=== PATIENT | male | born 1940 | race Caucasian/White ===

== ENCOUNTER → 2017-05-28 | Outpatient (CLI) | payer MEDICARE, OTHER ==
[~2017-05-28] MED LIST: AMOXICILLIN; ASP81CT PO; DOXY100C2 PO; GABA-531 PO; MULT-974 PO; NIAC1CAP PO; OSTEO BI-FLEX1 EACH PO; SMV20T PO; [UNRECOGNIZED DRUG - OTHER] PO
--- NOTE | 2017-05-28 16:41 | Diagnostic Imaging Report ---
PROCEDURE: MRI lumbar spine. TECHNIQUE: Multiplanar, multisequence MRI of the lumbar spine was performed without contrast. INDICATION: Back pain. History of back surgery. FINDINGS: There is posterior and anterior fusion hardware noted at L4, L5 and S1 levels. There is minimal posterior translation of L2 over L3 and L3 over L4, otherwise the alignment of the posterior spinal line is satisfactory. The vertebral body heights appear preserved. There is severe disc height loss at L2/L3 level. There are mild disc herniations at L1/2, L2/3 and L3/L4 levels. There is marrow edema and Modic type changes around endplates in the mid lumbar spine levels. No suspicious focal marrow lesion seen. The cauda equina and conus medullaris appear grossly unremarkable. T12/L1: No disc herniation, no spinal canal or foraminal stenosis. L1/2: There is a diffuse disc bulge and mild to moderate facet hypertrophy. No central canal stenosis. There is mild narrowing of the left lateral recess and no significant narrowing on the right lateral recess. There is mild to moderate bilateral foraminal stenosis. L2/3: There is a diffuse disc bulge and moderate facet hypertrophy bilaterally. No central canal stenosis. There is bilateral minimal narrowing of the lateral recess. There is mild foraminal stenosis bilaterally, more prominent on the left side. L3/L4: There is a diffuse disc bulge and bilateral moderate facet hypertrophy. No central canal stenosis. There is moderate stenosis of the left lateral recess abutting the descending left L4 nerve root. No stenosis on the right lateral recess. The foramina demonstrate bilateral moderate to severe stenosis worse on the left side encroaching upon the exiting left L3 spinal nerve. L4/5 fusion level demonstrates no remnant disc herniation. No spinal canal or foraminal stenosis. The foramina appear patent. L5/S1: There is fusion changes with no remnant disc herniation or osteophyte evident. No central canal, lateral recess or foraminal stenosis. IMPRESSION: 1. Postsurgical changes with anterior and posterior fusion of L4-S1 levels. 2. Moderate to severe foraminal stenosis at L3/4 level, worse on the left side. Other findings described above. Dictated by: Dictated on workstation # [id number]
== END ==
LOC: RAD 15:10
DX: M51.26 Other intervertebral disc displacement, lumbar region (principal); M48.061 Spinal stenosis, lumbar region without neurogenic claudication; Z98.1 Arthrodesis status
CPT/HCPCS: 72148

== ENCOUNTER 2017-07-28 07:50 | Day surgery (SDC) | payer MEDICARE, OTHER ==
[~2017-07-28] VITALS: Ht 188 cm; Wt 83.9 kg
[2017-07-28] VITALS (9 sets, daily range): BP systolic 118–142; BP diastolic 68–82
[~2017-07-28 07:50] MED LIST changes: -ASPI-983 PO; -ATOR10TA66 PO; -CHOL20003 PO; -GABA-486 PO; -METO-351 PO; -ROSU10TA PO; -TURM538C PO
--- OUTSIDE RECORDS SUMMARY | 2017-07-28 07:54 | XMS REPORT | Continuity of Care Document ---
Author Author [facility] Organization [facility] Address Unknown Phone Unavailable Allergies Active Description Code Type Severity Reaction Onset Reported/Identified Relationship to Patient Clinical Status Yes ANTIHISTAMINES ANTIHISTAMINES Mild N/A 08/30/2015 Yes azithromycin [id number] Drug Allergy Unknown RASH 08/30/2015 Medications There is no data. 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 06/24/2013 EMIGDIO CARMONA FACC, KARINA FACP CCDS Ot 414.01 CORONARY ATHEROSCLEROSIS OF [place] CORON 06/24/2013 EMIGDIO CARMONA FACC, KARINA FACP CCDS Ot 414.4 CORONARY ATHEROSCLEROSIS DUE TO [place]CIFIE 06/24/2013 EMIGDIO CARMONA FACC, KARINA FACP CCDS Ot 722.52 LUMB/LUMBOSAC DISC DEGEN 06/24/2013 EMIGDIO CARMONA FACC, KARINA FACP CCDS Ot 794.31 ABNORM ELECTROCARDIOGRAM 06/24/2013 EMIGDIO CARMONA FACC, ALI FACP CCDS Ot V10.46 HX-PROSTATIC MALIGNANCY 06/24/2013 EMIGDIO CARMONA FACC, ALI FACP CCDS Ot V58.69 OTH MED,LT,CURRENT USE 07/11/2014 Ot 185 07/11/2014 Ot 562.10 07/11/2014 Ot 185 07/11/2014 Ot 791.9 07/11/2014 Ot V72.63 07/11/2014 Ot V72.81 07/11/2014 Ot 185 07/11/2014 KARINA BEAL MD, FACC FACP CCDS Ot 447.8 07/11/2014 EMIGDIO CARMONA FACC ALI FACP CCDS Ot 794.31 07/14/2014 ALEX BOWLES MD Ot 724.2 08/09/2014 ALEX BOWLES MD Ot 724.2 02/08/2015 ALEX BOWLES MD Ot 721.3 02/08/2015 ALEX BOWLES MD Ot V45.4 03/02/2015 ALEX BOWLES MD Ot 721.3 03/02/2015 ALEX BOWLES MD Ot V45.4 08/30/2015 Ot M48.06 SPINAL STENOSIS, LUMBAR REGION 10/29/2015 JANIS GUERRERO MD, Ot G57.01 LESION OF SCIATIC NERVE, RIGHT LOWER DSOUZA 11/21/2015 Ot 185 11/21/2015 Ot 562.10 11/21/2015 Ot 185 11/21/2015 Ot 791.9 11/21/2015 Ot V72.63 11/21/2015 Ot V72.81 11/21/2015 Ot 185 11/21/2015 EMIGDIO CARMONA FACC, ALI FACP CCDS Ot 447.8 11/21/2015 EMIGDIO CARMONA FACC, ALI FACP CCDS Ot 794.31 11/21/2015 ALEX BOWLES MD Ot 724.2 11/21/2015 ALEX BOWLES MD Ot 721.3 11/21/2015 ALEX BOWLES MD Ot V45.4 07/21/2016 Ot 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 07/21/2016 Ot 791.9 ABN URINE FINDINGS NEC 07/21/2016 Ot V72.63 PRE- PROCEDURAL LABORATORY EXAMINATION 07/21/2016 Ot V72.81 EXAM-PRE- OPERATIVE CARDIOVASCULAR 07/21/2016 Ot 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 07/21/2016 EMIGDIO CARMONA FACC, ALI FACP CCDS Ot 447.8 ARTERIAL DISEASE NEC 07/21/2016 EMIGDIO CARMONA FACC, ALI FACP CCDS Ot 794.31 ABNORM ELECTROCARDIOGRAM 07/21/2016 ALEX BOWLES MD Ot 724.2 LUMBAGO 07/21/2016 ALEX BOWLES MD Ot 721.3 LUMBOSACRAL SPONDYLOSIS 07/21/2016 ALEX BOWLES MD Ot V45.4 ARTHRODESIS STATUS 11/27/2016 JANIS GUERRERO MD Ot G57.01 LESION OF SCIATIC NERVE, RIGHT LOWER DSOUZA 05/28/2017 Ot 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 05/28/2017 EMIGDIO CARMONA [facility], ALI FACP CCDS Ot 447.8 ARTERIAL DISEASE NEC 05/28/2017 EMIGDIO CARMONA FAC, KARINA FACP CCDS Ot 794.31 ABNORM ELECTROCARDIOGRAM 05/28/2017 ALEX BOWLES MD Ot 724.2 LUMBAGO 05/28/2017 ALEX BOWLES MD Ot 721.3 LUMBOSACRAL SPONDYLOSIS 05/28/2017 ALEX BOWLES MD, Ot V45.4 ARTHRODESIS STATUS 05/29/2017 OTHER, UNLISTED Ot M48.061 SPINAL STENOSIS, LUMBAR REGION WITHOUT N 05/29/2017 OTHER, UNLISTED Ot M51.26 OTHER INTERVERTEBRAL DISC DISPLACEMENT, 05/29/2017 OTHER, UNLISTED Ot Z98.1 ARTHRODESIS STATUS 06/03/2017 OTHER, UNLISTED Ot M48.061 SPINAL STENOSIS, LUMBAR REGION WITHOUT N 06/03/2017 OTHER, UNLISTED Ot M51.26 OTHER INTERVERTEBRAL DISC DISPLACEMENT, 06/03/2017 OTHER, UNLISTED Ot Z98.1 ARTHRODESIS STATUS 06/22/2017 OTHER, UNLISTED Ot M48.061 SPINAL STENOSIS, LUMBAR REGION WITHOUT N 06/22/2017 OTHER, UNLISTED Ot M51.26 OTHER INTERVERTEBRAL DISC DISPLACEMENT, 06/22/2017 OTHER, UNLISTED Ot Z98.1 ARTHRODESIS STATUS 07/06/2017 OTHER, UNLISTED Ot M48.061 SPINAL STENOSIS, LUMBAR REGION WITHOUT N 07/06/2017 OTHER, UNLISTED Ot M51.26 OTHER INTERVERTEBRAL DISC DISPLACEMENT, 07/06/2017 OTHER, UNLISTED Ot Z98.1 ARTHRODESIS STATUS 07/25/2017 Ot 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 07/25/2017 EMIGDIO CARMONA [facility], [facility] CCD[facility] Ot 447.8 ARTERIAL DISEASE NEC 07/25/2017 EMIGDIO RAI, KARINA [facility] CCD[facility] Ot 794.31 ABNORM ELECTROCARDIOGRAM 07/25/2017 ALEX BOWLES MD Ot 724.2 LUMBAGO 07/25/2017 ALEX BOWLES MD Ot 721.3 LUMBOSACRAL SPONDYLOSIS 07/25/2017 ALEX BOWLES MD Ot V45.4 ARTHRODESIS STATUS 07/25/2017 OTHER, UNLISTED Ot M48.061 SPINAL STENOSIS, LUMBAR REGION WITHOUT N 07/25/2017 OTHER, UNLISTED Ot M51.26 OTHER INTERVERTEBRAL DISC DISPLACEMENT, 07/25/2017 OTHER, UNLISTED Ot Z98.1 ARTHRODESIS STATUS Procedures There is no data. Results There is no data. Encounters ACCT No. Visit Date/Time Discharge Status Pt. Type Provider Facility Loc./Unit Complaint [id number] 05/28/2017 15:10:00 05/28/2017 23:59:59 CLS Outpatient OTHER, UNLISTED [facility] RAD M54.5 BACK PAIN,M48.07 STENOSIS [id number] 10/29/2015 13:30:00 10/29/2015 14:42:00 DIS Outpatient JANIS GUERRERO MD [facility] CARD PIRFORMIS SYNDROME [id number] 01/18/2015 12:11:00 01/18/2015 23:59:59 CLS Outpatient ALEX BOWLES MD [facility] RAD RADICULOPATHY [id number] 07/11/2014 13:31:00 07/11/2014 23:59:59 CLS Outpatient ALEX BOWLES MD [facility] RAD LUMBAGO [id number] 06/24/2013 11:24:00 06/24/2013 18:00:00 DIS Outpatient EMIGDIO CARMONA FACC, ALI FACP CCDS [facility] CATH ABNORMAL STRESS, CAD [id number] 06/20/2013 12:19:00 06/20/2013 23:59:59 CLS Outpatient EMIGDIO CARMONA FACC, ALI FACP CCDS [facility] RAD ABNORMAL EKG [id number] 07/28/2017 07:50:00 ACT Outpatient EMIGDIO CARMONA FACC, ALI FACP CCDS [facility] CATH NSVT,CAD,SOB,FATIGUE [id number] 07/28/2017 07:46:00 ACT Outpatient EMIGDIO CARMONA FACC, ALI FACP CCDS [facility] CARD I47.2 NSVT [id number] 08/30/2015 08:57:00 Document Registration [id number] 10/11/2012 00:00:00 Document Registration [id number] 07/12/2012 14:15:00 Document Registration [id number] 06/02/2011 08:41:00 Document Registration [id number] 05/02/2011 05:44:00 Document Registration [id number] 04/24/2011 07:49:00 Document Registration [id number] 03/26/2011 10:35:00 Document Registration [id number] 12/20/2010 10:38:00 Document Registration
[2017-07-28] MEDS ORDERED: NS IV 1000 ML 1,000 ML IV SCH ×2 (08:00→11:33)
[2017-07-28] MEDS ORDERED: LIDOCAINE 1% INJ 50 ML (XYLOCAINE) VIAL ONE (08:08)
[2017-07-28] MEDS ORDERED: HEParin (CATH LAB) 2,000 ML IV ONE (08:08)
[2017-07-28 08:31] LABS: MEAN PLATELET VOLUME 11.1 FL (7.4-10.4); RED BLOOD COUNT 4.19 10^6/uL (4.35-5.85); RED CELL DISTRIBUTION WIDTH 12.6 % (10.0-14.5); WHITE BLOOD COUNT 5.8 10^3/uL (4.3-11.0)
[2017-07-28 08:52] LABS: ALANINE AMINOTRANSFERASE 22 U/L (0-55); ANION GAP 8 MMOL/L (5-14); ASPARTATE AMINO TRANSFERASE 24 U/L (5-34); BILIRUBIN,TOTAL 0.5 MG/DL (0.1-1.0); BLOOD UREA NITROGEN 17 MG/DL (7-18); BUN/CREATININE RATIO 15; CALCIUM 9.3 MG/DL (8.5-10.1); CARBON DIOXIDE 24 MMOL/L (21-32); CHLORIDE 109 MMOL/L (98-107); CHOLESTEROL 117 MG/DL (< 200); CREATININE SERUM 1.13 MG/DL (0.60-1.30); DIRECT LDL 58 MG/DL (1-129); GFR ESTIMATED > 60; GLUCOSE 95 MG/DL (70-105); SODIUM 141 MMOL/L (135-145); TOTAL PROTEIN 7.2 GM/DL (6.4-8.2); TRIGLYCERIDES 48 MG/DL (<150); VLDL CHOLESTEROL 10 MG/DL (5-40)
[2017-07-28 08:53] LABS: PROTHROMBIN TIME PATIENT 12.8 SEC (12.2-14.7)
[2017-07-28] MEDS ORDERED: GABA-486 PO (09:06)
[2017-07-28] MEDS ORDERED: ROSU10TA PO (09:06)
[2017-07-28] MEDS ORDERED: TURM538C PO (09:06)
[2017-07-28] MEDS ORDERED: ASPI-983 PO (09:06)
[2017-07-28] MEDS ORDERED: CHOL20003 PO (09:06)
[2017-07-28] MEDS ORDERED: ATOR10TA66 PO (09:10)
[2017-07-28] MEDS ORDERED: MIDAZOLAM 5 MG/5 ML (VERSED) VIAL ONE (10:09)
[2017-07-28] MEDS ORDERED: diphenhydrAMINE 50 MG/ML INJ (BENADRYL) ONE (10:09)
[2017-07-28] MEDS ORDERED: fentaNYL INJECTION 100 MCG/2 ML AMP ONE (10:09)
--- NOTE | 2017-07-28 10:54 | Cardiac Procedure Note-CS/ASA ---
Pre-Procedure Note Pre-Op Procedure Note H&P Reviewed The H&P was reviewed, patient examined and no changes noted. Date H&P Reviewed: Jul 28, 2017 Time H&P Reviewed: 10:54 Conscious Sedation Pre-Proced Time Reviewed: 10:54 ASA Class: 3 Airway Mallampati Classification: ([place] appropriate class) I. II. III, IV Lungs Heart ASA score ASA 1: a normal healthy patient ASA 2: a patient with a mild systemic disease (mid diabetes, controlled hypertension, obesity ASA 3: a patient with a severe systemic disease that limits activity (angina , COPD, prior Myocardial infarction) ASA 4: a patient with an incapacitating disease that is a constant threat to life (CHF, renal failure) ASA 5: a moribund patient not expected to survive 24 hrs. (ruptured aneurysm) ASA 6: a declared brain patient whose organs are being harvested. For emergent operations, add the letter E after the classification Grade 2 Sedation Plan: Analgesia, Amnesia, Plan communicated to team members, Discussed options with patient/fam, Discussed risks with patient/fam Note The patient is an appropriate candidate to undergo the planned procedure, sedation, and anesthesia. The patient immediately re-assessed prior to indication. KARINA BEAL MD FACP FAC CCDS Jul 28, 2017 10:54
[2017-07-28] MEDS ORDERED: METO-351 PO (11:36)
--- NOTE | 2017-07-28 11:37 | Discharge Inst-Cardiology ---
Discharge Inst-Cardiac Discharge Medications New Medications: Metoprolol Succinate (Toprol Xl) 25 Mg Tab.er.24h 25 MG PO DAILY, #90 TAB 3 Refills Continued Medications: Aspirin (Aspirin EC) 81 Mg Tablet.dr 81 MG PO DAILY, TAB Atorvastatin Calcium (Atorvastatin Calcium) 10 Mg Tablet 10 MG PO HS, TAB Cholecalciferol (Vitamin D3) (Vitamin D3) 2,000 Unit Capsule 2000 UNIT PO DAILY, CAP Gabapentin (Gabapentin) 100 Mg Capsule 100 MG PO TID, CAP Turmeric Root Extract (Turmeric) 538 Mg Capsule 538 MG PO DAILY, CAP KARINA BEAL MD FACP FACC CCDS Jul 28, 2017 11:37
--- NOTE | 2017-07-28 11:37 | Discharge Inst-Post CATH ---
Discharge Inst-CATH Post Cardiac Cath D/C Inst Follow Up/Plan F/u with Dr Johnson in one week CARDIAC CATH DISCHARGE INSTRUCTIONS *Hold Metformin for 48 hours post heart cath. ACTIVITY * Go Home directly and rest. * Limit activity of the leg (or wrist if it was used) for 7 days including aerobics, swimming, jogging, bicycling, etc. * Restrict stair-climbing for 7 days if possible, if not, climb up with your non -cath leg, then bring together on the same step. * Avoid lifting, pushing, pulling or excessive movement of the affected extremity for 7 days. * Customary sexual activity may be resumed after 2 days-use caution not to use a position that strains or causes pain to the affected extremity. * No driving for 24 hours. * NO SMOKING. * Avoid straining for bowel movements for 7 days. * Gentle walking on level ground is allowed. * Returning to work will depend on the type of procedure and the results. Your doctor will discuss this with you. CALL YOUR DOCTOR FOR ANY OF THE FOLLOWING: *If bleeding from the puncture site occurs- Apply gentle pressure to site with clean cloth and call your doctor or EMS. * If a knot or lump forms under the skin, increases in size, or causes pain. * If bruising appears to be worsening or moving further down your leg instead of disappearing. * Temperature above 101 F. CARE OF YOUR GROIN INCISION; * Bruising or purple discoloration of the skin near the puncture site is common. * You may shower only, no bathtub bathing for 5 days. Be careful to avoid slipping as your leg may feel stiff. * If a closure device was used on your femoral artery, please see the attached guide regarding care of the device and your leg. * REMOVE the dressing from your groin the next day after your procedure in the shower. CARE OF YOUR WRIST INCISION; * Bruising or purple discoloration of the skin near the puncture site is common. * You may shower. * DO NOT submerge wrist. * Remove dressing in 24 hours. KARINA JOHNSON MD [facility] CCDS Jul 28, 2017 11:37
[2017-07-28] MEDS ORDERED: PATIENT MAY USE OWN MEDS, ALL PO SCH (11:45)
--- NOTE | 2017-07-28 14:10 | CARDIAC CATHETERIZATION ---
DATE OF SERVICE: 07/28/2017 CARDIAC CATHETERIZATION REPORT The patient is a 76-year-old man who was noted to have brief nonsustained wide complex tachycardia on a recent Holter monitor study. Cardiac catheterization was carried out today for evaluation for coronary artery disease or cardiomyopathy. PROCEDURE: She was brought to the cardiac catheterization laboratory in a fasting state. Right groin was prepared and draped in usual sterile fashion. A 1% lidocaine was used for local anesthesia. Modified Seldinger technique was used to advance a 5-Bhutanese sheath into the right femoral artery. A 5-Bhutanese JL4 catheter for left coronary angiography, 5-Bhutanese JR4 catheter for right coronary angiography, and 5-Bhutanese pigtail catheter was used for left heart catheterization and left ventricular angiography. With advancement of the pigtail catheter into the left ventricle, brief episode of supraventricular tachycardia was seen at approximately 150 beats per minute. This was self resolving. The pigtail catheter, following left heart catheterization, left ventricular angiography, was pulled back to the aortic arch and aortic arch angiography was performed. Angiography of the right femoral artery had been carried out through the sheath at the beginning of the procedure. At the end of the procedure, Mynx was used to achieve hemostasis. He tolerated the procedure well. HEMODYNAMICS: Left ventricular end-diastolic pressure following coronary angiography was 6 mmHg. There was no significant pressure gradient on pullback across the aortic valve. The ascending aortic pressure was 152/75 with a mean of 67 mmHg. LEFT VENTRICULAR ANGIOGRAPHY: Left ventricular angiography was carried out in the right anterior oblique projection. Global left ventricular systolic function normal. No regional wall motion abnormalities are seen. Left ventricular ejection fraction is approximately 65%. There does not appear to be significant mitral regurgitation. AORTIC ARCH ANGIOGRAPHY: Aortic arch angiography did not indicate any significant thoracic aortic aneurysm or dissection. The neck arteries, to the extent visualized, do not exhibit significant disease. CORONARY ANGIOGRAPHY: Left main coronary artery is free of significant disease. Left anterior descending artery has approximately 30% mid vessel stenosis. Left circumflex artery has mild plaques. The right coronary artery has a high origin. It is a dominant and does not exhibit significant disease. CONCLUSIONS: 1. Angiographically mild coronary artery disease. 2. Normal global left ventricular systolic function with ejection fraction approximately 65%. 3. Normal left ventricular end-diastolic pressure. 4. No significant mitral regurgitation. 5. A brief episode of supraventricular tachycardia was seen on this study. DISCUSSION AND RECOMMENDATIONS: Based on this study, it appears appropriate to continue a conservative approach. Risk factor modification has been discussed and has been advised close outpatient followup for now. Job ID: [id number] DocumentID: [id number] Dictated Date: 07/28/2017 11:17:46 Road Cleaner Date: 07/28/2017 14:09:37 Dictated By: KARINA BEAL MD, MA, FACP, FACC,
== END 2017-07-28 14:26 | disposition home or self-care (01) ==
LOC: CATH 07:50 → ICU 11:33 → CATH 14:26
PROVIDERS: ATTEND Internal Medicine Cardiovascular Disease
DX: I25.10 Atherosclerotic heart disease of native coronary artery without angina pectoris (principal); M51.16 Intervertebral disc disorders with radiculopathy, lumbar region; Z87.891 Personal history of nicotine dependence; Z85.46 Personal history of malignant neoplasm of prostate
CPT/HCPCS: 36221; 36415; 80053; 80061; 85027; 85610; 85730; 87081; 93458

== ENCOUNTER → 2017-07-28 | Outpatient (CLI) | payer MEDICARE, OTHER ==
[~2017-07-28] MED LIST changes: +ASPI-983 PO; +ATOR10TA66 PO; +CHOL20003 PO; +GABA-486 PO; +METO-351 PO; +ROSU10TA PO; +TURM538C PO
== END ==
LOC: CARD 07:46
PROVIDERS: ATTEND Internal Medicine Cardiovascular Disease
DX: I47.2 Ventricular tachycardia (principal); I65.23 Occlusion and stenosis of bilateral carotid arteries; I25.10 Atherosclerotic heart disease of native coronary artery without angina pectoris; E78.4 Other hyperlipidemia
CPT/HCPCS: 93306

== ENCOUNTER → 2017-08-21 | Outpatient (CLI) | payer MEDICARE, OTHER ==
[~2017-08-21] MED LIST changes: +ASPI-983 PO; +ATOR10TA66 PO; +CHOL20003 PO; +GABA-486 PO; +METO-351 PO; +ROSU10TA PO; +TURM538C PO
[2017-08-21 08:14] LABS: BUN/CREATININE RATIO 15; CARBON DIOXIDE 24 MMOL/L (21-32); CHLORIDE 110 MMOL/L (98-107); CREATININE SERUM 1.15 MG/DL (0.60-1.30); GFR ESTIMATED > 60; GLUCOSE 88 MG/DL (70-105); POTASSIUM 4.2 MMOL/L (3.6-5.0); SODIUM 142 MMOL/L (135-145)
--- NOTE | 2017-08-21 11:51 | Diagnostic Imaging Report ---
EXAMINATION: CTA of the neck. INDICATION: Carotid artery disease. TECHNIQUE: Contiguous 9.6 mm axial sections were taken from the midportion of the skull through the lung apices following administration of intravenous contrast. Sagittal and coronal reconstructed images were also performed. COMPARISON: There are no prior studies available for comparison. FINDINGS: Reportedly, the patient has had the right carotid artery "replaced". 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 The vessel measures 1.2 x 1.6 cm in maximum AP and transverse diameters and the dilatation of the vessel covers a length of approximately 4 cm. Furthermore, nearly three cores of the lumen of the carotid artery is occupied by thrombus. The origin of the internal carotid artery does not seem to be stenotic. There is atherosclerotic disease involving the carotid bifurcation on the left. There is no hemodynamically significant stenosis in this region. The vertebral arteries are opacified and the left vertebral artery is slightly dominant compared to the right. There is a small amount of thrombus formation within the internal jugular vein on the left. I suspect that this is chronic in nature. There is no evidence for thrombosis of the right internal jugular vein. The intracranial circulation where visualized is unremarkable. There is no mass or adenopathy involving the neck. There is a small 5 mm rounded area of low density in the inferior pole of the left lobe of the thyroid. This finding is of uncertain etiology, although most likely benign. Ultrasound would be recommended for further study, however. The lung apices are clear. The intracranial contents, where visualized, show no sign of an acute abnormality. The bone windows reveal that there is degenerative disc and bony disease throughout the mid and lower cervical spine. There is no acute bony abnormality identified. IMPRESSION: 1. 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 The lumen of the carotid artery is partially occupied by thrombus. There does not appear to be hemodynamically significant stenosis of the origin of the internal carotid artery on the right. 2. There is atherosclerotic disease involving the carotid bifurcation on the left but there is no sign of a hemodynamically significant stenosis in this region. 3. There is no acute abnormality of the neck. 4. The low-density nodule in the inferior pole of the left lobe of the thyroid is most likely benign but ultrasound would be recommended for further evaluation. Dictated by: Dictated on workstation # [id number]
== END ==
LOC: RAD 07:41
PROVIDERS: ATTEND Nurse Practitioner Family
DX: I65.23 Occlusion and stenosis of bilateral carotid arteries (principal); I72.0 Aneurysm of carotid artery; E04.1 Nontoxic single thyroid nodule
CPT/HCPCS: 36415; 70498; 80048

== ENCOUNTER → 2019-05-31 | Outpatient (CLI) | payer MEDICARE, OTHER ==
[~2019-05-31] MED LIST changes: -ROSU10TA PO; +ROSU10TA22 PO
--- NOTE | 2019-05-31 17:32 | Diagnostic Imaging Report ---
INDICATION: Left shoulder pain. TIME OF EXAM: 1:12 p.m. Three views of the left shoulder were obtained. FINDINGS: Glenohumeral and acromioclavicular alignment are normal. Acromiohumeral space is normal. No fracture or dislocation is seen. IMPRESSION: No acute bony abnormality is detected. Dictated by: Dictated on workstation # [id number]
== END ==
LOC: RAD FS 13:04
PROVIDERS: ATTEND Nurse Practitioner
DX: M66.822 Spontaneous rupture of other tendons, left upper arm (principal); M25.512 Pain in left shoulder
CPT/HCPCS: 73030

== ENCOUNTER 2022-03-05 10:37 | Outpatient (RCR) | payer MEDICARE, OTHER ==
[~2022-03-05 10:37] MED LIST changes: +ASPI-1238 PO; -ASPI-983 PO; +NF-CRES10T PO; -ROSU10TA22 PO
== END 2022-03-09 | disposition home or self-care (01) ==
PROVIDERS: ATTEND Pain Medicine Interventional Pain Medicine
DX: M48.061 Spinal stenosis, lumbar region without neurogenic claudication (principal); M51.16 Intervertebral disc disorders with radiculopathy, lumbar region; M47.26 Other spondylosis with radiculopathy, lumbar region; M25.561 Pain in right knee; G89.29 Other chronic pain

== ENCOUNTER 2022-04-03 13:51 | Outpatient (RCR) | payer MEDICARE, OTHER | END 2022-04-03 14:20 | disposition home or self-care (01) | PROVIDERS: ATTEND Pain Medicine Interventional Pain Medicine | DX: M48.062 Spinal stenosis, lumbar region with neurogenic claudication (principal); M51.16 Intervertebral disc disorders with radiculopathy, lumbar region; M47.26 Other spondylosis with radiculopathy, lumbar region; M25.561 Pain in right knee; G89.29 Other chronic pain ==

== ENCOUNTER → 2022-04-07 | Outpatient (CLI) | payer MEDICARE, OTHER | LOC: CARD 09:35 | PROVIDERS: ATTEND Internal Medicine Cardiovascular Disease | DX: I35.1 Nonrheumatic aortic (valve) insufficiency (principal); I51.7 Cardiomegaly | CPT/HCPCS: 93306 ==

== ENCOUNTER → 2022-04-18 | Outpatient (CLI) | payer MEDICARE, OTHER ==
[~2022-04-18] VITALS: Ht 187 cm; Wt 77.0 kg
[~2022-04-18] MED LIST changes: +REGADENOSON 0.4 MG/5 ML SYR (LEXISCAN) IV ONE
[2022-04-18] MEDS: CATHETER FLUSH 10 ML SYR IVP PRN ×2 (08:02→09:22)
[2022-04-18 09:21] VITALS: BP 151/73
--- NOTE | 2022-04-22 16:28 | STRESS TEST ---
DATE OF SERVICE: 04/18/2022 RESTING AND POST REGADENOSON TECHNETIUM-99M TETROFOSMIN SPECT CT IMAGING ORDERING PHYSICIAN: Dr. Johnson. CLINICAL DIAGNOSIS: Shortness of breath. Baseline images were carried out after injection of 10.06 mCi of technetium-99m Tetrofosmin. This was followed by 0.4 mg regadenoson and 31 mCi of technetium-99m Tetrofosmin for stress imaging. The electrocardiogram showed sinus rhythm at baseline. There was left bundle branch block at baseline. The electrocardiogram did not change significantly with the regadenoson infusion. Review of images at rest and following stress indicates somewhat diminished count uptake in the inferior wall and the basal septum. This appears to be due to diaphragmatic attenuation. Gated images show normal global left ventricular systolic function with normal wall motion, including the inferior wall and the basal septum. Left ventricular ejection fraction is calculated to be 51%. CONCLUSIONS: 1. No evidence of significant myocardial ischemia or infarction on this study. 2. Normal regional wall motion. 3. Normal global left ventricular systolic function with a calculated ejection fraction of 51%. Job ID: [id number] DocumentID: [id number] Dictated Date: 04/22/2022 14:00:19 Project Associate Date: 04/22/2022 16:27:52 Dictated By: KARINA JOHNSON MD, MA, FACP, FACC,
== END ==
LOC: CARD 08:15
PROVIDERS: ATTEND Internal Medicine Cardiovascular Disease
DX: R06.09 Other forms of dyspnea (principal)
CPT/HCPCS: 78452; 93017; A9502

== ENCOUNTER → 2022-04-21 | Outpatient (CLI) | payer MEDICARE, OTHER ==
[~2022-04-21] MED LIST changes: -REGADENOSON 0.4 MG/5 ML SYR (LEXISCAN) IV ONE
--- NOTE | 2022-04-21 10:22 | Diagnostic Imaging Report ---
INDICATION: Patient with degenerative disk disease. EXAM: MRI of the thoracic spine performed without IV contrast. Sequences include sagittal T2, sagittal T1, sagittal T2 fat-sat, and axial T2. COMPARISON: None. FINDINGS: There is no acute thoracic spine fracture or dislocation. There are mildly hypertrophic spurs anteriorly involving the mid to lower thoracic spine. There are Modic type I degenerative signal changes involving the T7 through T9 levels. There are Modic type II degenerative signal changes anteriorly involving the T6-T7 level. There is arthropathy with the lower thoracic spine affected the most. The thoracic spinal cord has normal cord caliber with no abnormal signal. There is grade 1 anterolisthesis of T10 on T11 with a diffuse disk bulge. There is moderate bilateral facet arthropathy with hypertrophic changes on the left. There is moderate central canal stenosis, severe right neuroforaminal narrowing, and no significant left neuroforaminal narrowing at the T10-T11 level. There is a T9-T10 diffuse disk bulge with mild to moderate bilateral facet arthropathy. There is mild central canal narrowing, severe right neuroforaminal narrowing, and moderate left neuroforaminal narrowing. The remainder of the thoracic spine shows no significant central canal or neuroforaminal narrowing. There is no significant paraspinal soft tissue abnormality. IMPRESSION: 1: There is no acute thoracic spine fracture or dislocation. 2: There is multilevel thoracic spine degenerative disease which is most pronounced at the T9-T10 and T10-T11 levels, as described above. Dictated by: Dictated on workstation # [id number]
== END ==
LOC: RAD 08:51
PROVIDERS: ATTEND Pain Medicine Interventional Pain Medicine
DX: M48.062 Spinal stenosis, lumbar region with neurogenic claudication (principal); M96.1 Postlaminectomy syndrome, not elsewhere classified; M51.16 Intervertebral disc disorders with radiculopathy, lumbar region; M47.814 Spondylosis without myelopathy or radiculopathy, thoracic region; Z98.1 Arthrodesis status; M43.14 Spondylolisthesis, thoracic region; M51.24 Other intervertebral disc displacement, thoracic region; M48.04 Spinal stenosis, thoracic region
CPT/HCPCS: 72146

== ENCOUNTER → 2022-05-09 | Outpatient (CLI) | payer MEDICARE, OTHER | LOC: CARD 08:58 | PROVIDERS: ATTEND Nurse Practitioner Family | DX: R55 Syncope and collapse (principal) | CPT/HCPCS: 93225; 93226 ==

== ENCOUNTER → 2022-09-09 | Day surgery (SDC) | payer MEDICARE, OTHER ==
[~2022-09-09] VITALS: Ht 187.9 cm; Wt 75.0 kg
[~2022-09-09] MED LIST changes: +LIDOCAINE 1% INJ 20 ML VIAL ONE
[2022-09-09 07:59] VITALS: BP 117/70
--- NOTE | 2022-09-09 17:42 | OPERATIVE REPORT ---
DATE OF SERVICE: 09/09/2022 PREOPERATIVE DIAGNOSIS: Near syncope. POSTOPERATIVE DIAGNOSIS: Near syncope. PROCEDURE: Implantable loop recorder implantation. INDICATIONS: The patient is an 81-year-old gentleman who has had near syncope. He saw his manager unit, Dr. Claros in consultation and an implantable loop recorder was recommended. This was carried out today after having obtained an informed consent. DESCRIPTION OF PROCEDURE: [facility]. The left prepectoral area was prepared and draped in the usual sterile fashion. 1% lidocaine was used for local anesthesia. The tools provided with the Medtronic LINQ device were used to make a subcutaneous pocket anterior to the fourth intercostal space into which the device was placed. This is a Medtronic LINQ II device with serial number [id number]. The skin edges were closed using Dermabond and Steri-Strips. He tolerated the procedure well. Job ID: [id number] DocumentID: [id number] Dictated Date: 09/09/2022 10:23:23 [employer] Instructor Date: 09/09/2022 17:41:00 Dictated By: KARINA BEAL MD; MA; FACP; FACC;
== END ==
LOC: CATH 07:39
PROVIDERS: ATTEND Internal Medicine Cardiovascular Disease
DX: R55 Syncope and collapse (principal); R00.1 Bradycardia, unspecified; I44.7 Left bundle-branch block, unspecified; I25.10 Atherosclerotic heart disease of native coronary artery without angina pectoris; I77.9 Disorder of arteries and arterioles, unspecified; E04.1 Nontoxic single thyroid nodule; Z85.46 Personal history of malignant neoplasm of prostate; Z87.891 Personal history of nicotine dependence; Z28.310 Unvaccinated for COVID-19
CPT/HCPCS: 33285; C1764

== ENCOUNTER 2022-11-04 09:40 | Day surgery (SDC) | payer MEDICARE, OTHER ==
[~2022-11-04] VITALS: Ht 188 cm; Wt 73.8 kg
[2022-11-04] VITALS (9 sets, daily range): BP systolic 122–160; BP diastolic 73–97
[~2022-11-04 09:40] MED LIST changes: -LIDOCAINE 1% INJ 20 ML VIAL ONE
[2022-11-04] MEDS ORDERED: LIDOCAINE 1% INJ 20 ML VIAL ONE ×2 (09:56→09:58)
[2022-11-04] MEDS ORDERED: NS IV 1000 ML 1,000 ML ONE ×2 (09:57→09:58)
[2022-11-04] MEDS ORDERED: HEParin (CATH LAB) 1,000 ML IV ONE (09:57)
[2022-11-04] MEDS ORDERED: ceFAZolin INJECTION 1,000 MG VIAL IV ONE (10:00)
[2022-11-04] MEDS ORDERED: NS IV 1000 ML 1,000 ML IV SCH ×2 (10:00→16:30)
[2022-11-04] MEDS ORDERED: NS IV 1000 ML 1,000 ML IV ONE (10:00)
[2022-11-04 10:32] LABS: HEMOGLOBIN 13.7 g/dL (13.3-17.7); MEAN PLATELET VOLUME 11.4 fL (9.0-12.2); WHITE BLOOD COUNT 6.4 10^3/uL (4.3-11.0)
[2022-11-04] MEDS ORDERED: CHOL-34 PO (10:39)
[2022-11-04] MEDS ORDERED: TRM50T PO (10:39)
[2022-11-04] MEDS ORDERED: CLOP75TA28 PO (10:39)
[2022-11-04] MEDS ORDERED: ATOR20TA66 PO (10:39)
[2022-11-04] MEDS ORDERED: BACI3.5O5 OP (10:39)
[2022-11-04] MEDS ORDERED: ZINC50TA51 PO (10:39)
[2022-11-04 10:58] LABS: PROTHROMBIN TIME PATIENT 13.4 SEC (12.2-14.7)
[2022-11-04 11:08] LABS: ALBUMIN 3.5 GM/DL (3.2-4.5); BILIRUBIN,TOTAL 0.8 MG/DL (0.1-1.0); CALCIUM 8.9 MG/DL (8.5-10.1); CREATININE SERUM 1.08 MG/DL (0.60-1.30); POTASSIUM 3.9 MMOL/L (3.6-5.0); TOTAL PROTEIN 6.5 GM/DL (6.4-8.2)
[2022-11-04] MEDS ORDERED: ceFAZolin INJECTION 1,000 MG ONE (13:42)
[2022-11-04] MEDS ORDERED: fentaNYL INJ 100 MCG/2 ML AMP ONE ×2 (13:42→14:33)
[2022-11-04] MEDS ORDERED: MIDAZOLAM 5 MG/5 ML (VERSED) VIAL ONE (13:42)
[2022-11-04] MEDS ORDERED: MIDAZOLAM 2 MG/2 ML (VERSED) VIAL ONE ×2 (14:33→15:30)
[2022-11-04] MEDS ORDERED: proPOfol 200 MG/20 ML (DIPRIVAN) VIAL IV ONE (14:47)
--- NOTE | 2022-11-04 16:20 | Cardiac Procedure Note-CS/ASA ---
Pre-Procedure Note Pre-Op Procedure Note Date of Available H&P: Oct 31, 2022 Date H&P Reviewed: Nov 04, 2022 Time H&P Reviewed: 13:30 History & Physical: H&P Reviewed, No changes noted Moderate Sedation PreProcedure ASA Score 3 Airway Lungs Heart ASA score ASA 1: a normal healthy patient ASA 2: a patient with a mild systemic disease (mid diabetes, controlled hypertension, obesity ASA 3: a patient with a severe systemic disease that limits activity (angina, COPD, prior Myocardial infarction) ASA 4: a patient with an incapacitating disease that is a constant threat to life (CHF, renal failure) ASA 5: a moribund patient not expected to survive 24 hrs. (ruptured aneurysm) ASA 6: a declared brain- patient whose organs are being harvested. For emergent operations, add the letter E after the classification Mallampati Classification Grade 2 Sedation Plan Analgesia, Amnesia, Plan communicated to team members The patient is an appropriate candidate to undergo the planned procedure, sedation, and anesthesia. The patient immediately re-assessed prior to indication. KARINA BEAL MD FACP FAC CCDS Nov 04, 2022 16:20
[2022-11-04] MEDS ORDERED: PATIENT MAY USE OWN MEDS, ALL PO SCH (16:30)
--- NOTE | 2022-11-04 17:04 | Diagnostic Imaging Report ---
EXAMINATION: Chest 1 view HISTORY: Pacemaker placement COMPARISON: None available. FINDINGS: Pacemaker is present with leads projecting over the right atrium and right ventricle. Loop recorder is seen. No edema or pneumonia. No pleural effusion or pneumothorax. Heart size is normal. IMPRESSION: 1. Clear lungs. Dictated by: Dictated on workstation # [id number]
[2022-11-04] MEDS: ceFAZolin INJECTION 1,000 MG in NS (IVPB) 50 ML IV SCH (21:01)
[2022-11-04] MEDS ORDERED: ACETAMINOPHEN 325 MG TABLET PO PRN ×3 (21:30→21:45)
[2022-11-04] MEDS ORDERED: oxyCODONE/APAP 5/325MG (PERCOCET 5) TABLET PO PRN (21:30)
[2022-11-04] MEDS ORDERED: ACETAMINOPHEN 325 MG TABLET ONE (21:33)
--- NOTE | 2022-11-04 23:07 | OPERATIVE REPORT ---
DATE OF SERVICE: 11/04/2022 PREOPERATIVE DIAGNOSES: Syncope and up to four second pauses on implantable loop recorder transmissions in the absence of any rate-lowering agents. POSTOPERATIVE DIAGNOSES: Syncope and up to four second pauses on implantable loop recorder transmissions in the absence of any rate-lowering agents. PROCEDURE: Dual-chamber pacemaker implantation. Dual chamber implantation was carried out after having obtained an informed consent. [facility] state. The left prepectoral area was prepared and draped in the usual sterile fashion. 1% lidocaine was used for local anesthesia. Modified Seldinger technique was used to advance 2 guidewires into the left subclavian vein and the tip of the wire was placed in the right atrium. Sharp and blunt dissection was used to make a pacemaker pocket. Good hemostasis was assured. Pocket was packed with gauze soaked in saline. The wires were used to advance sheath and the wires were removed. The sheaths were used to advance leads and the sheaths were removed. One lead was placed at the right ventricular apex. This is an active fixation lead. Its model number is 5076-58 with serial number [id number]. The right atrial lead is also an active fixation lead. It was placed at the anterolateral wall of the right atrium. Its serial number is [id number]. Both leads were tested at maximum output and there was no diaphragmatic stimulation. P-wave measured 2.4 millivolts. R waves are measured at 6.8 millivolts. Pacing impedance in the atrium is 456 ohms. Pacing impedance in the ventricle at 646 ohms. Atrial capture threshold 0.75 volts at 0.4 milliseconds. Ventricular capture threshold is 0.5 volts at 0.4 milliseconds. The leads were attached to a dual chamber Medtronic pacemaker, model W1DR01 with serial number [id number]. The pacemaker is in the AAIR to DDDR mode. The lower rate is 60 beats per minute and the upper tracking rate is 130 beats per minute. The pacemaker and the leads were placed in the pacemaker pocket after saline-soaked gauze had been removed from the pocket and after the pocket had been thoroughly irrigated with saline. The leads had been sutured to prepectoral fascia using sleeves and 0 Ethibond. The pacemaker was placed in a TYRX pouch. All this apparatus was then placed in the pacemaker pocket and the pocket was closed in 2 layers using 3-0 Vicryl. The patient tolerated the procedure well. Job ID: [id number] DocumentID: [id number] Dictated Date: 11/04/2022 16:14:17 [employer] Date: 11/04/2022 23:05:00 Dictated By: KARINA BEAL MD; EUGENIA; JÚNIOR; RIAZ; MELANIE
[2022-11-05 00:03] VITALS: BP 135/75
[2022-11-05 04:14] VITALS: BP 133/78
[2022-11-05 05:14] LABS: HEMOGLOBIN 12.3 g/dL (13.3-17.7)
[2022-11-05 05:16] LABS: MEAN PLATELET VOLUME 11.3 fL (9.0-12.2); WHITE BLOOD COUNT 8.9 10^3/uL (4.3-11.0)
[2022-11-05 05:24] LABS: ALBUMIN 3.1 GM/DL (3.2-4.5); POTASSIUM 4.3 MMOL/L (3.6-5.0)
[2022-11-05 05:26] LABS: CALCIUM 8.4 MG/DL (8.5-10.1)
[2022-11-05 05:27] LABS: TOTAL PROTEIN 5.6 GM/DL (6.4-8.2)
[2022-11-05 05:29] LABS: BILIRUBIN,TOTAL 0.6 MG/DL (0.1-1.0)
[2022-11-05 05:30] LABS: CREATININE SERUM 0.96 MG/DL (0.60-1.30)
[2022-11-05] MEDS: ceFAZolin INJECTION 1,000 MG in NS (IVPB) 50 ML IV SCH (06:07)
[2022-11-05] MEDS ORDERED: CATHETER FLUSH 10 ML SYR IVP PRN (06:45)
[2022-11-05 07:55] VITALS: BP 145/87
--- NOTE | 2022-11-05 08:08 | Progress Note - Cardiology ---
Cardiology SOAP Progress Note Subjective: Sitting up in bed C/O discomfort at the device insertion site No c/o palpitations, syncope, near syncope or chest pain Objective: I&O/Vital Signs Weight (Pounds): 185 Weight (Ounces): 0.0 Weight (Calculated Kilograms): 83.555315 Side: left Device Insertion Site: without hematoma Swelling: without swelling Bruising: moderated bruising Constitutional: AAO x 3, well-developed, well-nourished Respiratory: No accessory muscle use, No respiratory distress; chest expansion is symmetric, chest is bilaterally symmetric, lungs clear to auscultation Cardiovascular: regular rate-rhythm; No JVD; S1 and S2 Gastrointestional: No tender; soft, audible bowel sounds Extremities: no lower extremity edema bilateral Neurologic/Psychiatric: grossly intact (moves all extremities) Skin: No rash on exposed areas, No ulcerations on exposed areas Results/Procedures: Labs Microbiology 11/04/22 MRSA Screen - Final, Complete MRSA not isolated Procedures NAME: HECTOR [facility]ARIO [facility] REC#: [id number] [place] [facility] [place] 1940 PHYSICIAN: KARINA BEAL MD, MA, FACP, FACC, FSCAI, CCDS ADMIT DATE: 11/04/22/[facility] Signed Date of Exam:11/04/22 CHEST 1 VIEW, AP/PA ONLY EXAMINATION: Chest 1 view HISTORY: Pacemaker placement COMPARISON: None available. FINDINGS: Pacemaker is present with leads projecting over the right atrium and right ventricle. Loop recorder is seen. No edema or pneumonia. No pleural effusion or pneumothorax. Heart size is normal. IMPRESSION: 1. Clear lungs. Dictated by: Dictated on workstation # [id number] Dict: 11/04/221700 Trans: 11/04/221708 CVB [id number] Interpreted by: ELISEO TRIPLETT MD Electronically signed by: ELISEO TRIPLETT MD 11/04/221708 A/P: Assessment: Near-syncope and dizziness - Holter of 05/09/22: sinus martinez (rate 33 - 79, average 50 bpm), 4 triplets of ventricular beats (brief NSVT), no pause greater than approx 2 seconds. He had refused PPM at that time, but is now agreeable - S/P ILR implant on 09-09-22: Up to 4-second pauses on ILR during sleep hours (transmissions of 10/30/22) - S/P Dual-chamber pacemaker implantation on 11-04-22 Exertional shortness of breath of undetermined etiology - Echocardiogram of 04-07-22 showed LVEF 60-65%. LA mildly dilated. Mod AoR. PASP 20-25 mmHg CAD: - Mild CAD on card cath of 07/28/17 after a 5-beat run of WCT recorded on a Holter of Jun 2017. It showed normal LVEDP and LVEF (65%) - MPI 04-18-22: No evidence of significant myocardial ischemia or infarction on this study. Normal regional wall motion. Normal global left ventricular systolic function with a calculated ejection fraction of 51%. He has refused cardiac cath at that time Abn ECG: LBBB and sinus martinez Carotid arterial disease - s/p R CEA by Dr Leslie at [facility] in or around 2010. 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 - This is being followed by Dr Duval at [facility] (last in November 2021, per pt report, and was told had mod disease) Thyroid - Incidental finding of a L lobe thyroid nodule on CT neck of 08/21/17 on which f/u is with his pcp - TSH normal (1.66) on blood work of 06/25/17 H/O tobaccoism - Quit tobacco use in 1968 Oncology - H/o brachytherapy for prostate CA in 2012, followed by Dr [facility] - Lumbar degen disc disease and radiculopathy (chronic lumbago-sciatica) - Probable carpal tunnel syndrome, more on the L Thrombocytopenia - undetermined etiology Plan: S/P PPM implant - device functioning appropriately per interrogation today Mild thrombocytopenia of undetermined etiology - we will reduce Plavix to every other day and have advise f/u GAMA with PCP for further w/u - advise close f/u with us - CBC on Thursday Continue other home medications Post pacemaker instructions discussed including activity - he verbalizes understanding Ok to d/c home today YAIMA SINGH Nov 05, 2022 08:08
[2022-11-05] MEDS ORDERED: CEFU500T63 PO (08:10)
--- NOTE | 2022-11-05 08:13 | Discharge Inst-Cardiology ---
Discharge Inst-Cardiac Discharge Medications New Medications: Cefuroxime Axetil (Cefuroxime) 500 Mg Tablet 500 MG PO BID, #10 TAB Continued Medications: Atorvastatin Calcium (Atorvastatin Calcium) 20 Mg Tablet 20 MG PO HS, TAB Bacitracin/Polymyxin B Sulfate (Bacitracin-Polymyxin Eye Oint) 500 Unit-10,000 Unit/Gram Oint...g. 1 APPLIC OP HS, EA Cholecalciferol (Vitamin D3) (Vitamin D3) 25 Mcg (1000 Unit) Tablet 25 MCG PO DAILY, TAB Clopidogrel Bisulfate (Clopidogrel) 75 Mg Tablet 75 MG PO DAILY, TAB Tramadol HCl (Tramadol HCl) 50 Mg Tablet 50 MG PO DAILY PRN for PAIN-MODERATE (5-7), TAB Zinc Amino Acid Chelate (Zinc) 50 Mg Tablet 50 MG PO DAILY, TAB New, Converted or Re-Newed RX: Transmitted to Pharmacy Patient Instructions Patient Instructions: Please schedule device site check for this Monday, November 07, 2022 Please schedule appt with Dr. Johnson in 1-2 weeks YAIMA SINGH Nov 05, 2022 08:13
[2022-11-05] MEDS ORDERED: CLOP-31 PO (09:18)
--- NOTE | 2022-11-05 13:28 | Progress Note - Cardiology ---
Cardiology SOAP Progress Note Subjective: No new symptoms No focal weakness No n/v/d No shortness of breath No cp or palp or syncope Objective: I&O/Vital Signs 11/05/22 11/05/22 11/05/22 11/05/22 04:14 07:15 07:55 08:00 Temp 36.4 36.3 Pulse 60 59 74 Resp 12 18 B/P (MAP) 133/78 (96) 145/87 (106) Pulse Ox 98 98 98 O2 Delivery Room Air Room Air Room Air 11/05/22 11:20 B/P (MAP) O2 Delivery Room Air 11/05/22 00:00 Intake Total 1010 ml Output Total 700 ml Balance 310 ml Weight (Pounds): 185 Weight (Ounces): 0.0 Weight (Calculated Kilograms): 83.067600 Side: left Device Insertion Site: without hematoma Swelling: without swelling Bruising: moderated bruising Constitutional: AAO x 3, well-developed, well-nourished Respiratory: No accessory muscle use, No respiratory distress; chest expansion is symmetric, chest is bilaterally symmetric, lungs clear to auscultation Cardiovascular: regular rate-rhythm; No JVD; S1 and S2 Gastrointestional: No tender; soft, audible bowel sounds Extremities: no lower extremity edema bilateral Neurologic/Psychiatric: grossly intact (moves all extremities) Skin: No rash on exposed areas, No ulcerations on exposed areas Results/Procedures: Labs Laboratory Tests 11/05/22 05:07: White Blood Count 8.9, Red Blood Count 3.51L, Hemoglobin 12.3L, Hematocrit 35L, Mean Corpuscular Volume 100H, Mean Corpuscular Hemoglobin 35H, Mean Corpuscular Hemoglobin Concent 35, Red Cell Distribution Width 12.8, Platelet Count 84L, Mean Platelet Volume 11.3, Percent Immature Platelet Fraction 4.9, Sodium Level 138, Potassium Level 4.3, Chloride Level 110H, Carbon Dioxide Level 22, Anion Gap 6, Blood Urea Nitrogen 20H, Creatinine 0.96, Estimat Glomerular Filtration Rate 79, BUN/Creatinine Ratio 21, Glucose Level 82, Calcium Level 8.4L, Corrected Calcium 9.1, Total Bilirubin 0.6, Aspartate Amino Transf (AST/SGOT) 21, Alanine Aminotransferase (ALT/SGPT) 20, Alkaline Phosphatase 59, Total Protein 5.6L, Albumin 3.1L Microbiology 11/04/22 MRSA Screen - Final, Complete MRSA not isolated A/P: Assessment: Near-syncope and dizziness - Holter of 05/09/22: sinus martinez (rate 33 - 79, average 50 bpm), 4 triplets of ventricular beats (brief NSVT), no pause greater than approx 2 seconds. He had refused PPM at that time, but is now agreeable - S/P ILR implant on 09-09-22: Up to 4-second pauses on ILR transmissions of 10/30/22 - S/P Dual-chamber pacemaker implantation on 11-04-22, functioning normally on interrogation of 11/05/22 Exertional shortness of breath of undetermined etiology - Echocardiogram of 04-07-22 showed LVEF 60-65%. LA mildly dilated. Mod AoR. PASP 20-25 mmHg CAD: - Mild CAD on card cath of 07/28/17 after a 5-beat run of WCT recorded on a Holter of Jun 2017. It showed normal LVEDP and LVEF (65%) - MPI 04-18-22: No evidence of significant myocardial ischemia or infarction on is study. Normal regional wall motion. Normal global left ventricular systolic function with a calculated ejection fraction of 51%. He has refused cardiac cath at that time Abn ECG: LBBB and sinus martinez Carotid arterial disease - s/p R CEA by Dr Leslie at [facility] in or around 2010. 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 - This is being followed by Dr Duval at [facility] (last in November 2021, per pt report, and was told had mod disease) Thyroid - Incidental finding of a L lobe thyroid nodule on CT neck of 08/21/17 on which f/u is with his pcp - TSH normal (1.66) on blood work of 06/25/17 H/O tobaccoism - Quit tobacco use in 1968 Oncology - H/o brachytherapy for prostate CA in 2012, followed by Dr [facility] - Lumbar degen disc disease and radiculopathy (chronic lumbago-sciatica) - Probable carpal tunnel syndrome, more on the L Mild thrombocytopenia - undetermined etiology Plan: S/P PPM implant - device functioning appropriately per interrogation today Mild thrombocytopenia of undetermined etiology - we will reduce Plavix to every other day and have advise f/u GAMA with PCP for further w/u - advise close f/u with us - CBC on Thursday Continue other home medications Post pacemaker instructions discussed including activity - he verbalizes understanding Ok to d/c home today KARINA BEAL MD FACP [facility] CCDS Nov 05, 2022 13:28
[2022-11-05] MEDS ORDERED: CATHETER FLUSH 10 ML SYR IVP SCH (14:00)
== END 2022-11-05 11:24 | disposition home or self-care (01) ==
LOC: CATH 09:40 → CSD 16:35 → CATH 11-05 11:24
PROVIDERS: ATTEND Internal Medicine Cardiovascular Disease
DX: R55 Syncope and collapse (principal); R42 Dizziness and giddiness; I25.10 Atherosclerotic heart disease of native coronary artery without angina pectoris; I44.7 Left bundle-branch block, unspecified; R00.1 Bradycardia, unspecified; I65.29 Occlusion and stenosis of unspecified carotid artery; M51.16 Intervertebral disc disorders with radiculopathy, lumbar region; E04.1 Nontoxic single thyroid nodule; D69.6 Thrombocytopenia, unspecified; Z87.891 Personal history of nicotine dependence; Z85.46 Personal history of malignant neoplasm of prostate
CPT/HCPCS: 33208; 71045; 80053 ×2; 80061; 85027 ×2; 85610; 85730; 87081; 93005; C1785; C1898 ×2; 36415

== ENCOUNTER → 2022-11-13 | Outpatient (CLI) | payer MEDICARE, OTHER ==
[~2022-11-13] MED LIST changes: +ATOR20TA66 PO; +BACI3.5O5 OP; +CEFU500T63 PO; +CHOL-34 PO; +CLOP-31 PO; +CLOP75TA28 PO; +TRM50T PO; +ZINC50TA51 PO
[2022-11-13 15:52] LABS: ABSOLUTE RETIC # 46 10e9/uL (24-90); BASOPHILS % (AUTO) 1 % (0-10); EOSINOPHILS # (AUTO) 0.3 10^3/uL (0.0-0.3); EOSINOPHILS % (AUTO) 4 % (0-10); HEMATOCRIT 38 % (40-54); HEMOGLOBIN 13.5 g/dL (13.3-17.7); LYMPHOCYTES # (AUTO) 1.3 10^3/uL (1.0-4.0); LYMPHOCYTES % (AUTO) 20 % (12-44); MEAN CORPUSCULAR HEMOGLOBIN 36 pg (25-34); MEAN CORPUSCULAR HGB CONC 35 g/dL (32-36); MEAN CORPUSCULAR VOLUME 101 fL (80-99); MEAN PLATELET VOLUME 11.9 fL (9.0-12.2); MONOCYTES # (AUTO) 0.6 10^3/uL (0.0-1.0); MONOCYTES % (AUTO) 9 % (0-12); NEUTROPHILS # (AUTO) 4.2 10^3/uL (1.8-7.8); NEUTROPHILS % (AUTO) 66 % (42-75); PLATELET COUNT 98 10^3/uL (130-400); WHITE BLOOD COUNT 6.4 10^3/uL (4.3-11.0)
[2022-11-13 16:14] LABS: BURR CELLS SLIGHT; EOSINOPHILS % (MANUAL) 4 %; LYMPHOCYTES % (MANUAL) 21 %; MONOCYTES % (MANUAL) 10 %; NEUTROPHILS % (MANUAL) 65 %
== END ==
LOC: GIR 15:46
PROVIDERS: ATTEND Family Medicine
DX: D69.6 Thrombocytopenia, unspecified (principal)
CPT/HCPCS: 85007; 85027; 85045; 85055

== ENCOUNTER 2022-12-11 11:47 | Outpatient (RCR) | payer MEDICARE, OTHER | END 2023-01-07 | disposition home or self-care (01) | LOC: ONC 11:47 | PROVIDERS: ATTEND Radiology Radiation Oncology | DX: C61 Malignant neoplasm of prostate (principal); I25.10 Atherosclerotic heart disease of native coronary artery without angina pectoris; I49.3 Ventricular premature depolarization; Z95.0 Presence of cardiac pacemaker; E78.5 Hyperlipidemia, unspecified | CPT/HCPCS: 36415; 84153 ==